=== PATIENT | female | born 1970 | race Caucasian/White ===

== ENCOUNTER → 2019-11-18 | Day surgery (SDC) | payer BC ==
[2019-11-18] VITALS (8 sets, daily range): BP systolic 132–140; BP diastolic 61–81
[~2019-11-18] VITALS: Ht 162.6 cm; Wt 88.5 kg
[~2019-11-18] MED LIST: ATORVASTATIN CA80 MG ORAL; COQ1050 MG PO; FISH OIL CAP1000 MG ORAL; IRON159 MG PO; LR 1000ml 1,000 ML IVLG SCH; LR 1000ml ONE; Lidocaine 1% MPF 10mg/ml 5ml ONE; MULTIVITAMIN1 EACH PO; SYNTHROID50 MCG ORAL; VENLAFAXINE HCL25 MG ORAL; vitamin d PO
--- NOTE | 2019-11-18 11:11 | Pre-Procedure Note/Attestation ---
Pre-Procedure Note/Attestation Complete Prior to Procedure Planned Procedure: not applicable Procedure Narrative: colonoscopy Indications for Procedure Pre-Operative Diagnosis: h/o colon polyp Attestation I attest that I discussed the nature of the procedure; its benefits; risks and complications; and alternatives (and the risks and benefits of such alternatives ), prior to the procedure, with the patient (or the patient's legal inside sales representative). I attest that, if there was a reasonable possibility of needing a blood transfusion, the patient (or the patient's legal inside sales representative) was given the [facility] standardized written summary, pursuant to the [employer] [place] Blood Safety Act ([place] Health and Safety Code # 1645, as amended). I attest that I re-evaluated the patient just prior to the surgery and that there has been no change in the patient's H&P, except as documented below: Jl Laughlin MD Nov 18, 2019 11:11
--- NOTE | 2019-11-18 11:11 | Short Stay Surgery H&P ---
History of Present Illness History of Present Illness Chief Complaint see typed H&P HPI Bernadette Molina is a 49 year old female who was admitted on for Hx Of Colon Polyps Patient History Allergies: Coded Allergies: SULFA (SULFONAMIDE ANTIBIOTICS) (Verified Allergy, Severe, 11/15/19) rash, pain in the injection site Medication History Scheduled Atorvastatin Calcium* (Lipitor*), 80 MG ORAL BEDTIME, (Reported) Fish Oil (Fish Oil 1,000 mg Capsule), 1,000 MG ORAL DAILY, (Reported) Levothyroxine Sodium (Synthroid), 50 MCG ORAL DAILY, (Reported) Venlafaxine Hcl* (Effexor*), 150 MG ORAL THREE TIMES A DAY, (Reported) [vitamin d], 2,000 UNITS PO DAILY, (Reported) Miscellaneous Medications Ferrous Sulfate, Dried (Iron), 159 MG PO, (Reported) Multivitamin (Multivitamin), 1 EACH PO, (Reported) Ubidecarenone (Coq10), 50 MG PO, (Reported) Physical Exam Vital Signs Last Vital Signs Date Time Temp Pulse Resp B/P (MAP) Pulse Ox O2 Delivery O2 Flow Rate FiO2 11/18/19 10:58 Room Air 11/18/19 10:53 98.2 88 18 140/76 98 Plan Attestation Are the patient's medical conditions optimized for surgery? Jl Laughlin MD Nov 18, 2019 11:11
--- NOTE | 2019-11-18 11:54 | Endoscopy Procedure Note ---
Endoscopy Procedure Note General Indication for Procedure: h/o polyp Procedures Performed: colonoscopy Operative Findings/Diagnosis: dim r polyp, mild sig tics, mild rhoid Specimen: yes Pt Tolerated Procedure Well: Yes Estimated Blood Loss: none Anesthesia Anesthesiologist: see report Anesthesia: MAC Medications Medication Given: see anesthesia record Inserted Devices Implant(s) used?: No GI Core Measures 50 yrs or older w/o bx or poly: No 10yrs. F/U recommended: No If not recommended, why?: Above average risk 18 years or older w/prev. colo: Yes <3yrs. since last colonoscopy: No Med reason:<3 yrs.: System Reason:<3 yrs.: Last colonoscopy >= to 3yrs: Yes Jl Laughlin MD Nov 18, 2019 11:54
--- NOTE | 2019-11-18 11:55 | Brief Operative Note ---
Immediate Post Operative Note Operative Note Chief Complaint: colon polyp hx Pre-op Diagnosis: h/o colon polyp Procedure: colon bx Post-op Diagnosis: polyp lianna galindo Surgeon: ismael Anesthesiologist: see report Anesthesia: MAC Specimen: yes Complications: none Condition: stable Fluids: see anesthesia Estimated Blood Loss: none Drains: none Implant(s) used?: No Jl Laughlin MD Nov 18, 2019 11:55
--- NOTE | 2019-11-18 11:58 | Immediate Post-Op Evaluation ---
Immediate Post-Op Evalulation Immediate Post-Op Evalulation Procedure: Colonoscopy Date of Evaluation: Nov 18, 2019 Time of Evaluation: 11:58 IV Fluids: 500 Blood Pressure Systolic: 122 Blood Pressure Diastolic: 60 Pulse Rate: 70 Respiratory Rate: 15 O2 Sat by Pulse Oximetry: 99 Temperature (Fahrenheit): 98.2 Nausea: No Vomiting: No Complications none Patient Status: awake, reacts, patent Hydration Status: adequate Drug: none Luis MiguelriIveth jaramillo CRNA Nov 18, 2019 11:58
--- NOTE | 2019-11-18 12:00 | Anethesia Preoperative Eval ---
Anesthesia Pre-op PMH/ROS General Date of Evaluation: Nov 18, 2019 Time of Evaluation: 11:00 Anesthesiologist: suma ASA Score: ASA 2 Mallampati Score Class I : Soft palate, uvula, fauces, pillars visible Class II: Soft palate, uvula, fauces visible Class III: Soft palate, base of uvula visible Class IV: Only hard plate visible Mallampati Classification: Class II Surgeon: larry Diagnosis: polyp Surgical Procedure: colonoscopy Social History: smoking Family History: no anesthesia problems Allergies: Coded Allergies: SULFA (SULFONAMIDE ANTIBIOTICS) (Verified Allergy, Severe, 11/15/19) rash, pain in the injection site Medications: see eMAR Patient NPO?: Yes NPO Date: Nov 18, 2019 NPO Time: 00:01 Past Medical History Cardiovascular: Denies: HTN, CAD, [place], valve dz, arrhythmia, other Gastrointestinal/Genitourinary: Reports: other - hx colon polyp; Denies: GERD, CRI, ESRD Neurologic/Psychiatric: Reports: depression/anxiety; Denies: dementia, CVA, TIA, other Endocrine: Denies: DM, hypothyroidism, steroids, other Hematology/Immune: Denies: anemia, DVT, bleeding disorder, other Other: obesity Anesthesia Pre-op Phys. Exam Physician Exam Last Vital Signs Date Time Temp Pulse Resp B/P (MAP) Pulse Ox O2 Delivery O2 Flow Rate FiO2 11/18/19 10:58 Room Air 11/18/19 10:53 98.2 88 18 140/76 98 Constitutional: NAD Neurologic: CN 2-12 intact Cardiovascular: RRR Respiratory: CTA Gastrointestinal: S/NT/ND Airway Exam Mallampati Classification 2 Mallampati Score: Class II MO: full ROM: full Dentures: no upper, no lower Anesthesia Pre-op A/P Studies Pre-op Studies: EKG - sr Risk Assessment & Plan Assessment: denies changes in health Plan: MAC Status Change Before Surgery: No Pre-Antibiotics Drug: declined Iveth Tom CRNA Nov 18, 2019 12:00
--- NOTE | 2019-11-18 13:16 | 48 Hour Post Anesthesia Eval ---
Post Anesthesia Evaluation Procedure: Colonoscopy Date of Evaluation: Nov 18, 2019 Time of Evaluation: 13:16 Blood Pressure Systolic: 136 0: 66 Pulse Rate: 70 Respiratory Rate: 14 Temperature (Fahrenheit): 98.0 - 98 O2 Sat by Pulse Oximetry: 99 Nausea: No Vomiting: No Hydration Status: adequate Cardiopulmonary Status: stable Mental Status/LOC: patient returned to baseline Follow-up Care/Observations: na Post-Anesthesia Complications: none Follow-up care needed: N/A Iveth Tom CRNA Nov 18, 2019 13:16
--- NOTE | 2019-11-22 23:29 | Operative Note - Dictated ---
DATE OF OPERATION: 11/18/2019 GASTROENTEROLOGY PROCEDURE REPORT PROCEDURE: Colonoscopy with biopsy. SURGEON: Jl Laughlin MD. ANESTHESIA: Please see the separate anesthesiologist notes for details. PRE-ENDOSCOPIC DIAGNOSIS: History of colonic polyps. POST-ENDOSCOPIC DIAGNOSES: 1. Normal terminal ileum to about 5 cm. 2. Diminutive ascending colon polyp, status post biopsy removal. 3. Mild sigmoid diverticulosis. 4. Mild internal hemorrhoids. DESCRIPTION OF PROCEDURE: The procedure, risks, indications, alternatives, and possible complications were explained to the patient and informed consent was obtained. The patient was then sedated in the left lateral decubitus position and a diagnostic colonoscope was introduced into the rectum and advanced to the terminal ileum. The colonoscope was then gradually withdrawn and the mucosa examined carefully. Examination of the colonic mucosa revealed above abnormalities. The colonoscope was removed. The patient was sent to recovery in good condition. COMPLICATIONS: None. RECOMMENDATIONS: 1. Follow up biopsy results. 2. High-fiber diet. 3. Outpatient followup. Jl Laughlin M.D. DR: ELENA JOB#: [id number] CC: Jl Laughlin M.D.; Fax#: [phone]
== END | disposition home or self-care (01) ==
LOC: GAS 10:25
DX: K63.5 Polyp of colon (principal); D12.3 Benign neoplasm of transverse colon; Z86.010 Personal history of colon polyps; K57.30 Diverticulosis of large intestine without perforation or abscess without bleeding; K64.8 Other hemorrhoids; Z88.2 Allergy status to sulfonamides; Z79.899 Other long term (current) drug therapy; Z87.891 Personal history of nicotine dependence; F32.9 Major depressive disorder, single episode, unspecified; F41.9 Anxiety disorder, unspecified; E66.9 Obesity, unspecified; Z68.33 Body mass index [BMI] 33.0-33.9, adult
CPT/HCPCS: 45380; 94003; J2704; J7120; 94150